=== PATIENT | female | born 1990 | race Caucasian/White ===

== ENCOUNTER → 2020-05-01 | Outpatient (CLI) | payer BC ==
--- NOTE | 2020-05-01 15:51 | Diagnostic Imaging Report ---
INDICATION: patient, survey. TECHNIQUE: Multiple real-time grayscale images were obtained over the gravid uterus. COMPARISON: None during this . FINDINGS: A single live intrauterine fetus is seen measuring 20 weeks 1 day in size. The fetus is in cephalic presentation. Amniotic fluid index is 9.04 cm. Placenta is anterior with no evidence of previa. heart rate is 149 bpm. The cervical length is 4.2 cm. survey showed no detectable abnormalities, including normal views of the kidneys and bladder, stomach, and intracranial ventricles. Normal-appearing four-chamber heart view was seen. Normal-appearing three-vessel cord and cord insertion were seen. Normal views of the spine were seen. Maternal adnexa were not well seen but there was no free fluid. Biometrical measurements are as follows: Biparietal 4.68 cm, age 20 weeks 2 days. Head circumference 17.39 cm, age 20 weeks 0 days. Abdominal circumference 14.55 cm, age 20 weeks 0 days. Femur length 3.21 cm, age 20 weeks 0 days. Sonographic estimate age: 20 weeks 1 days. Sonographic estimated date of delivery: 09/17/2020. Estimated Weight: 322 gm (+/- 47 gm). LMP percentile: 34%. heart rate: 149 beats per minute. number: 1 of 1. IMPRESSION: Single live intrauterine fetus measuring 20 weeks 1 day in size. There were no detectable abnormalities. Dictated by: Dictated on workstation # [id number]
== END ==
LOC: RAD 14:30
PROVIDERS: ATTEND Obstetrics & Gynecology
DX: Z34.92 Encounter for supervision of normal pregnancy, unspecified, second trimester (principal); Z3A.20 20 weeks gestation of pregnancy
CPT/HCPCS: 76805

== ENCOUNTER 2020-09-15 19:10 | Inpatient (IN) | payer BC ==
[2020-09-15 20:00] VITALS: BP 143/91
[2020-09-15 20:15] LABS: BASOPHILS % (AUTO) 0 % (0-10); EOSINOPHILS # (AUTO) 0.5 10^3/uL (0.0-0.3); EOSINOPHILS % (AUTO) 5 % (0-10); HEMATOCRIT 38 % (35-52); HEMOGLOBIN 12.3 g/dL (11.5-16.0); LYMPHOCYTES # (AUTO) 1.5 10^3/uL (1.0-4.0); LYMPHOCYTES % (AUTO) 14 % (12-44); MEAN CORPUSCULAR HEMOGLOBIN 27 pg (25-34); MEAN CORPUSCULAR HGB CONC 32 g/dL (32-36); MEAN CORPUSCULAR VOLUME 86 fL (80-99); MEAN PLATELET VOLUME 10.3 fL (9.0-12.2); MONOCYTES # (AUTO) 0.8 10^3/uL (0.0-1.0); MONOCYTES % (AUTO) 7 % (0-12); NEUTROPHILS # (AUTO) 7.6 10^3/uL (1.8-7.8); NEUTROPHILS % (AUTO) 72 % (42-75); PLATELET COUNT 240 10^3/uL (130-400); WHITE BLOOD COUNT 10.5 10^3/uL (4.3-11.0)
[2020-09-15] MEDS ORDERED: TERBUTALINE INJ 1 MG/ML (BRETHINE) AMP SC PRN (20:15)
[2020-09-15] MEDS: D5 LR IV SOLUTION 1,000 ML IV SCH (20:21)
[2020-09-15] MEDS: NS IV 500 ML 500 ML IV SCH (20:21)
[2020-09-15 21:00] VITALS: BP 143/91
[2020-09-15 22:00] VITALS: BP 139/95
[2020-09-15] MEDS ORDERED: CATHETER FLUSH 10 ML SYR IV SCH (22:00)
[2020-09-15 23:00] VITALS: BP 134/93
[2020-09-15 23:05] LABS: BILIRUBIN,URINE NEGATIVE (NEGATIVE); CLARITY,URINE CLEAR; COLOR,URINE YELLOW; GLUCOSE, URINE (UA) NEGATIVE (NEGATIVE); KETONES,URINE TRACE (NEGATIVE); LEUKOCYTE ESTERASE ,URINE TRACE (NEGATIVE); NITRITE,URINE NEGATIVE (NEGATIVE); PROTEIN,URINE TRACE (NEGATIVE)
[2020-09-15 23:19] LABS: BACTERIA,URINE MODERATE /HPF
[2020-09-16] VITALS (57 sets, daily range): BP systolic 101–148; BP diastolic 54–97
[2020-09-16] MEDS: NS IV 500 ML 500 ML IV SCH (03:48)
--- NOTE | 2020-09-16 06:41 | History & Physical-OB/GYN ---
DEEDEE BECKER MED STUDENT 09/16/20 6:41am: OB - Chief Complaint & HPI Date/Time Date of Admission: Date of Admission: Sep 15, 2020 at 19:10 Time Seen by a Provider: 06:20 (Deedee Becker, MS3) Chief Complaint/History OB-Reason for Admission/Chief: Induction of Labor Hx : 1 Hx Para: 0 Hx Last Menstrual Period: 12/12/2019 Estimated Date of Conception: 09/17/2020 Expected Date of Delivery: Sep 17, 2020 Gestational Age in Weeks: 39 Gestational Age in Days: 5 Indication for induction: medical complication (Gestational hypertension), other History of Labs B-, antibody screen negative, rubella immune, HIV nonreactive, hepatitis B negative, group B strep negative, DMS 129, initial hemoglobin 11.6 with followup 11.3 Allergies and Home Medications Allergies Coded Allergies: No Known Drug Allergies (Unverified , 09/15/20) Patient Home Medication List Home Medication List Reviewed: Yes OB - History Hx of Present Care: Yes Ultrasounds: Normal mid trimester US Obstetrical Complications: Gestational Hypertension Medical Complications: None Other Concerns: PUPPP rash Information Induced Hypertension: Yes Maternal Gestational Diabetes: No Hemorrhage: No Obstetrical History Hx : 1 Hx Para: 0 Patient Past Medical History PIH Social History/Family History Alcohol Use: Denies Use Recreational Drug Use: No Smoking Cessation: Never smoker 2nd Hand Smoke Exposure: No Significant Family Hx + HTN in mom and dad + T2DM mom - defects, pre-eclampsia, or bleeding disorders Immunizations Hepatitis A: Yes Hepatitis B: Yes Tetanus Booster (TDap): Less than 5yrs Rubella: immune RPR/VDRL: Negative GBS Status: Negative HBsAG: Negative OB - Admission Exam Physical Exam Vitals: Vital Signs 09/16/20 09/16/20 00:00 06:00 Temp 38.6 Pulse 88 Resp 18 B/P (MAP) 148/83 (104) Pulse Ox 97 O2 Delivery Room Air HEENT: NCAT Heart: Rhythm Normal Lungs: Clear Abdomen: Gravid Extremities: Edema Cervical Dilatation: 1cm Effacement: 50% Station: -2 Membranes: Intact Heart Rate: 140's Accelerations: Accelerations Present Custodial Variability: Average (6-25) Contractions on Admission: None [place] Scoring Tool (Modified) Dilation (cm): 1-2cm (1) Effacement (%): 31-51% (1) Descent/Station: -2 (1) Labs Laboratory Tests Test 09/15/20 20:00 09/15/20 22:55 Range/Units White Blood Count 10.5 4.3-11.0 10^3/uL Red Blood Count 4.49 3.80-5.11 10^6/uL Hemoglobin 12.3 11.5-16.0 g/dL Hematocrit 38 35-52 % Mean Corpuscular Volume 86 80-99 fL Mean Corpuscular Hemoglobin 27 25-34 pg Mean Corpuscular Hemoglobin Concent 32 32-36 g/dL Red Cell Distribution Width 15.6 H 10.0-14.5 % Platelet Count 240 130-400 10^3/uL Mean Platelet Volume 10.3 9.0-12.2 fL Immature Granulocyte % (Auto) 1 % Neutrophils (%) (Auto) 72 42-75 % Lymphocytes (%) (Auto) 14 12-44 % Monocytes (%) (Auto) 7 0-12 % Eosinophils (%) (Auto) 5 0-10 % Basophils (%) (Auto) 0 0-10 % Neutrophils # (Auto) 7.6 1.8-7.8 10^3/uL Lymphocytes # (Auto) 1.5 1.0-4.0 10^3/uL Monocytes # (Auto) 0.8 0.0-1.0 10^3/uL Eosinophils # (Auto) 0.5 H 0.0-0.3 10^3/uL Basophils # (Auto) 0.0 0.0-0.1 10^3/uL Immature Granulocyte # (Auto) 0.1 0.0-0.1 10^3/uL Urine Color YELLOW Urine Clarity CLEAR Urine pH 7.0 5-9 Urine Specific [place] 1.025 H 1.016-1.022 Urine Protein TRACE H NEGATIVE Urine Glucose (UA) NEGATIVE NEGATIVE Urine Ketones TRACE H NEGATIVE Urine Nitrite NEGATIVE NEGATIVE Urine Bilirubin NEGATIVE NEGATIVE Urine Urobilinogen 0.2 < = 1.0 MG/DL Urine Leukocyte Esterase TRACE H NEGATIVE Urine RBC (Auto) NEGATIVE NEGATIVE Urine RBC NONE /HPF Urine WBC 2-5 /HPF Urine Crystals NONE /LPF Urine Bacteria MODERATE H /HPF Urine Casts NONE /LPF Urine Mucus MODERATE H /LPF Urine Culture Indicated YES OB - Assessment/Plan/Diagnosis Assessment Assessment: induction of labor Admission Dx Gestational hypertension Admission Status: Inpatient Order (span 2 midnights) Reason for Inpatient Admission: Induction of labor Plan Plan: Induction Induction Method: per Misoprostol Protocol Copy Copies To 1: LIZETTE MCCLAIN DO Supervisory-Addendum Brief Verification & Attestation Participated in pt care: history, physical Personally performed: exam, history Care discussed with: Medical Student Procedures: n/a Deedee Becker, MS3 LIZETTE MCCLAIN DO 09/16/20 2:17pm: OB - Chief Complaint & HPI Date/Time Date seen by a Provider: Sep 16, 2020 Chief Complaint/History Admission Nurse Assessment Rev: Yes Allergies and Home Medications Allergies Coded Allergies: No Known Drug Allergies (Unverified , 09/15/20) OB - Assessment/Plan/Diagnosis Assessment Admission Dx 30 yo @39 weeks GHTN Pupps rash GBS neg Copy Copies To 1: LIZETTE MCCLAIN DO Supervisory-Addendum Brief Verification & Attestation Results interpretation: Verified all documentation Verification and Attestation of Medical Student E/M Service A medical student performed and documented this service in my presence. I reviewed and verified all information documented by the medical student and made modifications to such information, when appropriate. I personally performed the physical exam and medical decision making. Lizette Mcclain, Sep 16, 2020,14:17 DEEDEE BECKER MED STUDENT Sep 16, 2020 6:41 am LIZETTE MCCLAIN DO Sep 16, 2020 2:17 pm
[2020-09-16] MEDS ORDERED: OXYTOCIN PRE-MIX DRIP 500 ML IV SCH ×2 (07:30→18:15)
[2020-09-16] MEDS: D5 LR IV SOLUTION 1,000 ML IV SCH ×3 (07:51→22:59)
[2020-09-16] MEDS ORDERED: FAMOTIDINE 20MG/2ML IV (PEPCID) IV ONE (18:00)
[2020-09-16] MEDS ORDERED: CITRIC ACID/SOB CIT (BICITRA) 30 ML UDC PO ONE (18:00)
[2020-09-16] MEDS ORDERED: ceFAZolin 2 GM IV Premixed 50 ML IV ONE (18:00)
[2020-09-16] MEDS ORDERED: LACTATED RINGERS 1,000 ML IV PRN ×2 (18:00)
[2020-09-16] MEDS ORDERED: METOCLOPRAMIDE INJ 10 MG/2 ML (REGLAN) IV ONE (18:00)
[2020-09-16] MEDS ORDERED: CITRIC ACID/SOB CIT (BICITRA) 30 ML UDC ONE (18:05)
[2020-09-16] MEDS ORDERED: FAMOTIDINE 20MG/2ML IV (PEPCID) ONE (18:06)
--- NOTE | 2020-09-16 18:14 | Discharge Inst-Women's Service ---
Discharge Inst-Women's Serv Depart Medication/Instructions New, Converted or Re-Newed RX: RX on Chart Final Diagnosis POD 2 PLTCS Problems Reviewed?: Yes Consults/Follow Up Additional Follow Up: Yes Orders/Referrals Dr. Mcclain in 7-10 days and in 6 weeks Activity Activity: Activity as Tolerated Driving Instructions: No Driving for 1 Week NO SMOKING: NO SMOKING Nothing Inside Vagina: No Douching, No [place], No Tampons Diet Discharge Diet: No Restrictions Symptoms to Report to : Bleeding Excessive, Pain Increased, Fever Over 101 Degrees F, Vaginal Bleeding Increase, Questions/Concerns For Any Problems or Questions: Contact Your Physician Skin/Wound Care Infection Signs and Symptoms: Increased Redness, Foul Odor of Wound, Increased Drainage, Skin Itchy or Has a Rash, Increased Swelling, Temperature Above 101 F Operative Area Clean and Dry: Keep Incision Clean/Dry Stitches/[place]/Dermabond: Dermabond, Care of Stitches Bathing Instructions: LIZETTE Degroot DO Sep 16, 2020 18:14
[2020-09-16] MEDS ORDERED: MEASLES,MUMPS,RUBELLA 1 EA INJ SC SCH (18:15)
[2020-09-16] MEDS ORDERED: TETANUS,DIPTH,PERTUSS P/F (BOOSTRIX) 0.5 ML VIAL IM SCH (18:15)
[2020-09-16] MEDS ORDERED: ONDANSETRON 4 MG/2 ML (SDV) Z0FRAN IVP PRN (18:15)
[2020-09-16] MEDS ORDERED: ACHD5005 PO (18:16)
[2020-09-16] MEDS ORDERED: DCS100C PO (18:16)
[2020-09-16] MEDS ORDERED: IBUP-844 PO (18:16)
[2020-09-16] MEDS ORDERED: ONDANSETRON 4 MG/2 ML (SDV) Z0FRAN ONE (18:33)
[2020-09-16] MEDS ORDERED: fentaNYL INJ 100 MCG/2 ML AMP ONE (18:33)
[2020-09-16] MEDS ORDERED: OXYTOCIN PRE-MIX DRIP 1,000 ML IV ONE (18:33)
[2020-09-16] MEDS ORDERED: BUPIVACAINE 0.25% 30 ML (SENSORCAINE) VIAL ONE (19:23)
[2020-09-16] MEDS ORDERED: KETOROLAC 30 MG/ML VIAL ONE (19:45)
[2020-09-16] MEDS ORDERED: METOCLOPRAMIDE INJ 10 MG/2 ML (REGLAN) IV PRN (20:15)
[2020-09-16] MEDS ORDERED: diphenhydrAMINE 50 MG/ML INJ (BENADRYL) IV PRN (20:15)
[2020-09-16] MEDS ORDERED: NALOXONE 0.4 MG/ML 1 ML (NARCAN) VIAL IV PRN ×2 (20:15)
[2020-09-16] MEDS ORDERED: ONDANSETRON 4 MG/2 ML (SDV) Z0FRAN IV PRN (20:15)
[2020-09-16] MEDS ORDERED: morphine INJ 10 MG/ML 1ML (SYR OR VIAL) IVP ONE (20:15)
--- NOTE | 2020-09-16 21:41 | OPERATIVE REPORT ---
DATE OF SERVICE: PREOPERATIVE DIAGNOSES: 1. A 30-year-old G1, P0 at 39 weeks and 6 days gestation. 2. Failure to progress. 3. Maternal intolerance of vaginal examination. POSTOPERATIVE DIAGNOSES: 1. A 30-year-old G1, P0 at 39 weeks and 6 days gestation. 2. Failure to progress. 3. Maternal intolerance of vaginal examination. 4. Nuchal cord x1. PROCEDURE PERFORMED: Primary low transverse section. SURGEON: Bora Owens DO ANESTHESIA: Spinal. ESTIMATED BLOOD LOSS: 300 mL. URINE OUTPUT: 30 mL clear at the end of the procedure. FLUIDS: 1100 mL lactated Ringer's solution. FINDINGS: A live female , weight pending. Apgars of 8 and 8. Grossly normal appearing uterus, bilateral fallopian tubes and ovaries. SPECIMEN SENT: None. INDICATIONS FOR PROCEDURE: This 30-year-old female is a patient, who was admitted for induction of labor due to gestational hypertension. She still has small to moderate amount of protein in her urine, but never had a protein to creatinine ratio greater than 0.3. She also had a significant PUPPP rash which was getting worse. Due to this, we decided not to allow the patient progress past her due date. She was admitted for induction of labor. Cytotec induction was used overnight for cervical ripening and Pitocin was started the next morning. She was intolerant to examination, but never progressed past 1 cm dilatation. Due to failure to progress, I discussed with the patient to proceed with . Risks of the procedure were discussed with the patient in detail including risk of bleeding, infection, damage to surrounding structures including, but not limited to bowel, bladder, ureter, kidneys, possible need for operation, postoperative complications that may occur, risk from anesthesia and even . After everything was discussed with the patient in detail, consent was obtained in the preoperative area and the patient was taken to the operating room. OPERATIVE REPORT IN DETAIL: Once in the operating room, anesthesia was found to be adequate. She was placed in a supine position with leftward tilt, prepped and draped in a normal sterile fashion. Anesthesia was tested and a timeout was performed. I then made a Pfannenstiel skin incision with a knife and carried down to the underlying fascia using Bovie cautery. The fascial incision was extended laterally using Bovie cautery. Superior aspect of the fascial incision was then grasped with Christine clamps, tented up and dissected off the underlying rectus muscles. The inferior aspect of the fascial incision was then grasped with Christine clamps, tented up and dissected off the underlying rectus muscles. Rectus muscle was then dissected down the midline using sharp dissection, which exposed the peritoneum, which I entered bluntly and extended using blunt traction. I then placed an Jae ring retractor, which offers excellent lateral sidewall retraction. I identified the lower uterine segment, which was found to be thinned out and I made a low transverse incision to the vesicouterine peritoneum and bluntly dissected off the lower uterine segment creating a bladder flap. I then proceeded with my myotomy until membranes were visualized, at which point, I extended the uterine incision laterally and superiorly using bandage scissors. Amniotomy was performed. In the process of doing this, clear fluid was noted and the infant was found in the vertex presentation. With gentle fundal pressure, the 's head was elevated up to the incision, where it was delivered through the incision. The nares and oropharynx were bulb suctioned and nuchal cord was reduced x1. Anterior and posterior shoulders were delivered. The infant was then brought into the operative field. With cord doubly clamped and cut, was handed off to waiting nurses in attendance. Cord blood was collected, 3-vessel cord with intact placenta was delivered spontaneously thereafter. IV Pitocin was initiated to facilitate uterine contraction. Uterine fundus became firmer by manual massage. The uterus was exteriorized and cleared of all endometrial clots and debris. I then proceeded with closing the uterine incision using 0 Vicryl suture in a running locked fashion. A second layer of imbricating 0 Monocryl was placed. Excellent hemostasis was noted after doing this. I then placed the uterus back within the pelvis and copiously irrigated the pelvis using normal saline. Once again, there was no active bleeding noted from any of my dissection planes. I placed Interceed antiadhesive over my low transverse incision. I removed the Jae ring retractor and then proceeded with closing the peritoneum using 3-0 Vicryl suture in a running fashion. The rectus muscle reapproximated using 3-0 Vicryl suture in an interrupted fashion. The fascia was reapproximated using 0 Vicryl suture in a running fashion. The subcutaneous tissue was reapproximated using 3-0 plain interrupted subcutaneous stitch and skin was reapproximated using 4-0 Monocryl running subcuticular. Dermabond was applied to the incision and sterile dressing with adhesive white tape. The patient tolerated the procedure well and was taken to recovery area in a stable condition. Lap and sponge counts were correct at the end of the procedure. Instrument counts were correct as well. Two grams of Ancef were given preoperatively for infection prophylaxis. Job ID: [id number] DocumentID: [id number] Dictated Date: 09/16/2020 19:35:47 Arc Furnace Operator Date: 09/16/2020 21:40:49 Dictated By: BORA OWENS DO
[2020-09-16] MEDS: HYDROcodone/APAP 5 MG/325 MG (LORTAB) TAB PO PRN (23:00)
[2020-09-16] MEDS: DOCUSATE SODIUM 100 MG (COLACE) CAP PO SCH (23:00)
[2020-09-17 02:00] VITALS: BP 139/90
[2020-09-17] MEDS: KETOROLAC 30 MG/ML VIAL IV SCH ×3 (02:01→14:37)
[2020-09-17] MEDS: HYDROcodone/APAP 5 MG/325 MG (LORTAB) TAB PO PRN (03:42)
[2020-09-17 06:29] LABS: BASOPHILS % (AUTO) 0 % (0-10); EOSINOPHILS # (AUTO) 0.7 10^3/uL (0.0-0.3); EOSINOPHILS % (AUTO) 6 % (0-10); HEMATOCRIT 34 % (35-52); HEMOGLOBIN 10.8 g/dL (11.5-16.0); LYMPHOCYTES # (AUTO) 1.5 10^3/uL (1.0-4.0); LYMPHOCYTES % (AUTO) 14 % (12-44); MEAN CORPUSCULAR HEMOGLOBIN 27 pg (25-34); MEAN CORPUSCULAR HGB CONC 32 g/dL (32-36); MEAN CORPUSCULAR VOLUME 85 fL (80-99); MEAN PLATELET VOLUME 10.5 fL (9.0-12.2); MONOCYTES # (AUTO) 0.9 10^3/uL (0.0-1.0); MONOCYTES % (AUTO) 8 % (0-12); NEUTROPHILS # (AUTO) 8.2 10^3/uL (1.8-7.8); NEUTROPHILS % (AUTO) 72 % (42-75); PLATELET COUNT 206 10^3/uL (130-400); WHITE BLOOD COUNT 11.4 10^3/uL (4.3-11.0)
[2020-09-17 06:40] VITALS: BP 133/89
--- NOTE | 2020-09-17 07:12 | Progress Note ---
Subjective Time Seen by a Provider: 06:30 Subjective/Events-last exam Nel Sesay is a 30 year old G1 now P1 who presented to L&D for a scheduled IOL. Due to failure to progress, the patient delivered via primary low transverse section. Patient is doing well today. Pain is controlled well. The patient is attempting to breastfeed and this is going well. Patient is ambulating to the bathroom and has not yet had a BM. Review of Systems General: No Chills, No Night Sweats, No Fatigue, No Malaise, No Appetite, No Other HEENT: No Head Aches, No Visual Changes, No Eye Pain, No Ear Pain, No Dysphasia, No Sinus Congestion, No Post Nasal Drip, No Sore Throat, No Other Pulmonary: No Dyspnea, No Cough, No Pleuritic Chest Pain, No Other Cardiovascular: No: Chest Pain, Palpitations, Orthopnea, Paroxysmal Noc. Dyspnea, Edema, Lt Headedness, Other Gastrointestinal: No: Nausea, Vomiting, Abdominal Pain, Diarrhea, Constipation, Melena, Hematochezia, Other Genitourinary: No Dysuria, No Frequency, No Incontinence, No Hematuria, No Retention, No Other Musculoskeletal: No: other, neck pain, shoulder pain, arm pain, back pain, hand pain, leg pain, foot pain Neurological: No: Weakness, Numbness, Incoordination, Change in speech, Confusion, Seizures, Other Focused Exam Respiratory: Lungs Clear, Normal Breath Sounds Cardiovascular: Regular Rate, Rhythm Skin: warm/dry Objective Exam Last Set of Vital Signs Vital Signs Date Time Temp Pulse Resp B/P (MAP) Pulse Ox O2 Delivery O2 Flow Rate FiO2 09/17/20 06:40 36.1 96 20 133/89 (104) 100 Room Air Capillary Refill : Greater Than 3 Seconds I&O Intake and Output 09/17/20 00:00 Intake Total 2150 ml Output Total 50 ml Balance 2100 ml Intake IV Total 2150 ml Output Urine Total 50 ml General: Alert, Oriented X3 HEENT: Atraumatic Lungs: Clear to Auscultation Heart: Regular Rate, Normal S1, Normal S2 Abdomen: Normal Bowel Sounds Extremities: No Clubbing, No Cyanosis Neuro: Normal Speech Results Lab Laboratory Tests 09/17/20 06:17: White Blood Count 11.4H, Red Blood Count 3.96, Hemoglobin 10.8L, Hematocrit 34L, Mean Corpuscular Volume 85, Mean Corpuscular Hemoglobin 27, Mean Corpuscular Hemoglobin Concent 32, Red Cell Distribution Width 15.8H, Platelet Count 206, Mean Platelet Volume 10.5, Immature Granulocyte % (Auto) 1, Neutrophils (%) (Auto) 72, Lymphocytes (%) (Auto) 14, Monocytes (%) (Auto) 8, Eosinophils (%) (Auto) 6, Basophils (%) (Auto) 0, Neutrophils # (Auto) 8.2H, Lymphocytes # (Auto) 1.5, Monocytes # (Auto) 0.9, Eosinophils # (Auto) 0.7H, Basophils # (Auto) 0.0, Immature Granulocyte # (Auto) 0.1 Assessment/Plan Assessment/Plan Assess & Plan/Chief Complaint PP day #1 s/p section Supervisory-Addendum Brief Verification & Attestation Participated in pt care: history, physical Personally performed: exam, history Care discussed with: Medical Student Procedures: n/a DEEDEE OLIVEROS MED STUDENT Sep 17, 2020 07:12
--- NOTE | 2020-09-17 07:26 | Postpartum Progress Note ---
Note Note Day # 1 Subjective: Patient is without complaints. Ambulating, voiding. Tolerating a regular diet without nausea or vomiting. Normal lochia. Pain is well controlled with oral pain medications. Objective: Physical Exam: General - Alert and oriented, no apparent distress Abdomen - Soft, appropriately tender to palpation, non-distended, fundus firm at umbilicus Extremities - no edema, negative Garrison's bilaterally Incision- c/d/i Assessment: POD 1 PLTCS Acute blood loss anemia Plan: Routine care. Encourage breast feeding. Encourage ambulation. Ferrous sulfate supplementation. Plan for discharge tomorrow Vitals - Labs Vital Signs - I&O Vital Signs Date Time Temp Pulse Resp B/P (MAP) Pulse Ox O2 Delivery O2 Flow Rate FiO2 09/17/20 06:40 36.1 96 20 133/89 (104) 100 Room Air 09/17/20 02:00 36.6 84 20 139/90 (106) 97 Room Air 09/16/20 22:30 106 18 130/84 (99) 98 Room Air 09/16/20 21:10 35.9 98 18 120/73 (89) 100 Room Air 09/16/20 20:45 Room Air 09/16/20 20:40 13 131/86 (101) 100 Room Air 09/16/20 20:15 Room Air 09/16/20 20:10 10 133/77 (95) 100 09/16/20 20:05 18 117/94 (102) 99 09/16/20 20:00 35.7 13 113/93 (100) 99 Room Air 09/16/20 19:55 Room Air 09/16/20 19:55 14 117/94 (102) 99 Room Air 09/16/20 19:50 35.8 12 116/79 (91) 100 Room Air 09/16/20 19:45 35.7 16 101/54 (70) 100 Room Air 09/16/20 18:30 36.7 111 142/85 (104) 100 Room Air 09/16/20 18:15 104 136/89 (105) 100 Room Air 09/16/20 18:00 108 100 Room Air 09/16/20 17:15 94 18 130/93 (105) Room Air 09/16/20 17:00 94 18 134/82 (99) Room Air 09/16/20 16:45 93 18 138/82 (100) Room Air 09/16/20 16:30 101 18 132/78 (96) Room Air 09/16/20 16:15 100 18 137/85 (102) Room Air 09/16/20 16:00 94 18 125/80 (95) Room Air 09/16/20 15:45 97 18 129/83 (98) Room Air 09/16/20 15:30 98 18 141/88 (105) Room Air 09/16/20 15:15 100 18 138/88 (105) Room Air 09/16/20 15:00 85 18 137/88 (104) Room Air 09/16/20 14:45 93 18 136/87 (103) Room Air 09/16/20 14:30 90 18 146/88 (107) Room Air 09/16/20 14:15 35.9 98 18 142/93 (109) Room Air 09/16/20 14:00 100 18 141/97 (112) Room Air 09/16/20 13:45 97 18 140/89 (106) Room Air 09/16/20 13:30 96 18 136/85 (102) Room Air 09/16/20 13:15 97 18 138/87 (104) Room Air 09/16/20 13:00 88 18 137/87 (104) Room Air 09/16/20 12:45 101 18 138/88 (105) Room Air 09/16/20 12:30 90 18 141/89 (106) Room Air 09/16/20 12:15 101 18 131/87 (102) Room Air 09/16/20 12:00 102 18 142/94 (110) Room Air 09/16/20 11:45 102 18 136/88 (104) Room Air 09/16/20 11:30 96 18 137/88 (104) Room Air 09/16/20 11:15 100 18 135/86 (102) Room Air 09/16/20 11:00 36.5 97 18 133/91 (105) Room Air 09/16/20 10:45 93 18 132/84 (100) Room Air 09/16/20 10:30 107 18 136/90 (105) Room Air 09/16/20 10:15 104 18 136/88 (104) Room Air 09/16/20 10:00 101 18 132/85 (101) Room Air 09/16/20 09:45 110 18 128/85 (99) Room Air 09/16/20 09:30 106 18 130/84 (99) Room Air 09/16/20 09:15 100 18 130/89 (103) Room Air 09/16/20 09:00 103 18 131/87 (102) Room Air 09/16/20 08:45 106 18 127/86 (100) Room Air 09/16/20 08:30 100 18 136/89 (105) Room Air 09/16/20 08:15 117 18 127/88 (101) Room Air 09/16/20 08:00 111 18 133/86 (102) Room Air I & O 09/17/20 06:59 Intake Total 2150 ml Output Total 50 ml Balance 2100 ml Labs Laboratory Tests 09/17/20 06:17: White Blood Count 11.4H, Red Blood Count 3.96, Hemoglobin 10.8L, Hematocrit 34L, Mean Corpuscular Volume 85, Mean Corpuscular Hemoglobin 27, Mean Corpuscular Hemoglobin Concent 32, Red Cell Distribution Width 15.8H, Platelet Count 206, Mean Platelet Volume 10.5, Immature Granulocyte % (Auto) 1, Neutrophils (%) (Auto) 72, Lymphocytes (%) (Auto) 14, Monocytes (%) (Auto) 8, Eosinophils (%) (Auto) 6, Basophils (%) (Auto) 0, Neutrophils # (Auto) 8.2H, Lymphocytes # (Auto) 1.5, Monocytes # (Auto) 0.9, Eosinophils # (Auto) 0.7H, Basophils # (Au to) 0.0, Immature Granulocyte # (Auto) 0.1 LIZETTE OWENS 24, 2021 07:26
[2020-09-17 08:11] VITALS: BP 139/90
[2020-09-17] MEDS: DOCUSATE SODIUM 100 MG (COLACE) CAP PO SCH ×2 (08:12→20:44)
[2020-09-17 12:00] VITALS: BP 136/91
[2020-09-17] MEDS ORDERED: diphenhydrAMINE 50 MG/ML INJ (BENADRYL) IVP ONE (12:15)
--- NOTE | 2020-09-17 13:56 | Anesthesia-General Post-Op ---
General Patient Condition Mental Status/LOC: Same as Preop Cardiovascular: Satisfactory Nausea/Vomiting: Absent Respiratory: Satisfactory Pain: Controlled Complications: Absent Post Op Complications Complications None Follow Up Care/Instructions Patient Instructions None needed. Anesthesia/Patient Condition Patient Condition Patient is doing well, no complaints, stable vital signs, no apparent adverse anesthesia problems. FRANCISCO PERES DO Sep 17, 2020 13:56
[2020-09-17 17:20] VITALS: BP 119/75
[2020-09-17] MEDS: D5 LR IV SOLUTION 1,000 ML IV SCH (20:00)
[2020-09-17] MEDS: IBUPROFEN 600 MG (MOTRIN) TAB PO SCH (20:44)
[2020-09-17 20:45] VITALS: BP 134/82
[2020-09-17] MEDS: CATHETER FLUSH 10 ML SYR IV SCH (22:00)
[2020-09-18 01:00] VITALS: BP 135/83
[2020-09-18] MEDS: IBUPROFEN 600 MG (MOTRIN) TAB PO SCH ×2 (01:48→08:30)
[2020-09-18 04:13] VITALS: BP 122/77
[2020-09-18] MEDS: D5 LR IV SOLUTION 1,000 ML IV SCH (04:34)
[2020-09-18] MEDS: CATHETER FLUSH 10 ML SYR IV SCH ×2 (06:07→06:14)
--- NOTE | 2020-09-18 08:27 | Postpartum Progress Note ---
Note Note Day # 2 Subjective: Patient is without complaints. Ambulating, voiding. Tolerating a regular diet without nausea or vomiting. Normal lochia. Pain is well controlled with oral pain medications. Objective: Physical Exam: General - Alert and oriented, no apparent distress Abdomen - Soft, appropriately tender to palpation, non-distended, fundus firm at umbilicus Extremities - no edema, negative Garrison's bilaterally Incision- c/d/i Assessment: POD 2 PLTCS Acute blood loss anemia Plan: Routine care. Encourage breast feeding. Encourage ambulation. Ferrous sulfate supplementation. Plan for discharge today Vitals - Labs Vital Signs - I&O Vital Signs Date Time Temp Pulse Resp B/P (MAP) Pulse Ox O2 Delivery O2 Flow Rate FiO2 09/18/20 04:13 36.4 96 16 122/77 (92) 99 Room Air 09/18/20 01:00 36.6 96 16 135/83 (100) 96 Room Air 09/17/20 20:45 36.7 99 16 134/82 (99) 99 Room Air 09/17/20 20:45 99 Room Air 09/17/20 17:20 37.1 100 16 119/75 (90) 97 Room Air 09/17/20 12:00 36.9 100 18 136/91 (106) 98 Room Air Labs Microbiology 09/15/20 Urine Culture - Final, Complete >=3 Gram Positive Isolates LIZETTE OWENS DO Sep 18, 2020 08:26
[2020-09-18 08:30] VITALS: BP 125/83
[2020-09-18] MEDS: DOCUSATE SODIUM 100 MG (COLACE) CAP PO SCH (08:30)
== END 2020-09-18 11:00 | disposition home or self-care (01) | DRG 787 ==
LOC: LDRP 19:10
PROVIDERS: ADMIT Obstetrics & Gynecology; ATTEND Obstetrics & Gynecology
PROC: 10D00Z1 Extraction of Products of Conception, Low, Open Approach (ICD-10-PCS; principal; 2020-09-16 18:41)
DX: O13.4 Gestational [pregnancy-induced] hypertension without significant proteinuria, complicating childbirth (principal); D62 Acute posthemorrhagic anemia; Z3A.39 39 weeks gestation of pregnancy; Z37.0 Single live birth; O90.81 Anemia of the puerperium; O62.0 Primary inadequate contractions; O69.81X0 Labor and delivery complicated by cord around neck, without compression, not applicable or unspecified
CPT/HCPCS: 36415; 81000; 83033; 85025; 86850; 86900; 86901; 87088

== ENCOUNTER → 2022-11-04 | Outpatient (CLI) | payer BC ==
[~2022-11-04] MED LIST: ACHD5005 PO; DOCU-239 PO; IBUP-844 PO
--- NOTE | 2022-11-04 12:52 | Diagnostic Imaging Report ---
PROCEDURE: Pelvic comp/transvaginal sonogram. TECHNIQUE: Complete transabdominal and transvaginal pelvic ultrasound was performed. In addition, limited pelvic Doppler was performed. INDICATION: Infertility workup. Uterus is retroverted measuring 7.4 x 4.2 x 6.1 cm. Endometrium is 2 mm in thickness. No myometrial mass is detected. Right ovary measures 3.4 x 2.7 x 3.0 cm and left ovary measures 2.6 x 1.9 x 2.2 cm. Multiple follicles are seen within both ovaries. Largest follicle is on the left approximately 10 mm in size. There is blood flow to both ovaries. No adnexal mass or free fluid is detected. IMPRESSION: Unremarkable transabdominal and transvaginal pelvic ultrasound with limited pelvic Doppler. Dictated by: Dictated on workstation # [id number]
== END ==
LOC: RAD 10:00
PROVIDERS: ATTEND Nurse Practitioner Women's Health
DX: Z31.9 Encounter for procreative management, unspecified (principal)
CPT/HCPCS: 76830; 76856